=== PATIENT | male | born 1975 | race Two or more races ===

== ENCOUNTER 2022-11-04 19:24 | Emergency (ER) | payer BC ==
[~2022-11-04] VITALS: Ht 172.7 cm; Wt 163.3 kg
[2022-11-04] MEDS ORDERED: TENORMIN25 MG PO (20:21)
[2022-11-04] MEDS ORDERED: AVAPRO300 MG PO (20:21)
== END 2022-11-04 22:13 | disposition home or self-care (01) ==
LOC: ER 19:24
DX: J10.1 Influenza due to other identified influenza virus with other respiratory manifestations (principal); Z20.822 Contact with and (suspected) exposure to COVID-19